=== PATIENT | female | born 1960 | race Caucasian/White ===

== ENCOUNTER 2023-06-21 16:37 | Emergency (ER) | payer MEDICAID ==
[~2023-06-21] VITALS: Ht 167.6 cm; Wt 113.4 kg
[2023-06-21 16:52] VITALS: BP_SYST 135; PULSE 70; RESP 18; TEMP 98.3; O2SAT 96
[2023-06-21] MEDS ORDERED: NACL 0.9% 1,000 ML IV ONE (20:00)
[2023-06-21 20:09] LABS: CLARITY/URINE CLEAR (CLEAR); COLOR,URINE YELLOW (YELLOW)
[2023-06-21 20:10] LABS: BILIRUBIN,URINE NEGATIVE (NEGATIVE); BLOOD, URINE NEGATIVE (NEGATIVE); GLUCOSE,URINE NEGATIVE (NEGATIVE); KETONES,URINE NEGATIVE (NEGATIVE); LEUKOCYTE ESTERASE ,URINE NEGATIVE (NEGATIVE); NITRITE, URINE NEGATIVE (NEGATIVE); PROTEIN URINE NEGATIVE (NEGATIVE); UROBILINOGEN,URINE 0.2 (0.2-1.0)
[2023-06-21 20:13] LABS: BASOPHILS % (AUTO) 0.8 % (0.0-2.0); EOSINOPHILS # (AUTO) 0.2 K/uL (0.0-0.4); EOSINOPHILS % (AUTO) 2.5 % (0.0-4.0); HEMATOCRIT 40.6 % (36-48); HEMOGLOBIN 13.6 g/dL (12.0-16.0); LYMPHOCYTES # (AUTO) 1.9 K/uL (1.0-5.5); LYMPHOCYTES % (AUTO) 28.6 % (20.5-51.5); MEAN CORPUSCULAR HEMOGLOBIN 30 pg (27-31); MEAN CORPUSCULAR HGB CONC 34 % (32-36); MEAN CORPUSCULAR VOLUME 91 fL (79.0-98.0); MONOCYTES # (AUTO) 0.4 K/uL (0.0-1.0); MONOCYTES % (AUTO) 5.8 % (1.7-9.3); NEUTROPHILS # (AUTO) 4.1 K/uL (1.8-7.7); NEUTROPHILS % (AUTO) 62.3 % (40.0-70.0); PLATELET COUNT (AUTO) 177 K/uL (130-430); RED BLOOD CELL COUNT(AUTO) 4.48 MIL/uL (4.2-6.2); RED CELL DISTRIBUTION WIDTH 14.1 % (9.0-15.0); WHITE BLOOD COUNT (AUTO) 6.6 K/uL (4.8-10.8)
[2023-06-21 20:31] LABS: ANION GAP 11 (5-15); CALCIUM 9.2 mg/dL (8.4-11.0); CARBON DIOXIDE 27 mmol/L (23-29); CHLORIDE 102 mmol/L (98-107); CREATININE 0.96 mg/dL (0.55-1.30); GFR AFRICAN AMERICAN 75 mL/min (>90); GLUCOSE 101 mg/dL (74-106); POTASSIUM 3.6 mmol/L (3.5-5.1); SODIUM SERUM 140 mmol/L (136-145); UREA NITROGEN, BLOOD 14 mg/dL (8-21)
[2023-06-21 20:32] LABS: GFR NON AFRICAN-AMERICAN 62 mL/min (>90)
[2023-06-21 20:36] LABS: ALBUMIN 3.9 g/dL (3.4-4.8); ASPARTATE AMINOTRANSFERASE 17 U/L (10-37); TOTAL BILIRUBIN 0.7 mg/dL (0.0-1.0)
[2023-06-21 20:39] LABS: ALANINE AMINOTRANSFERASE < 5 U/L (12-78)
[2023-06-21 21:29] LABS: BARBITURATE, URINE NEGATIVE (NEG <=200); BENZODIAZEPINE, URINE NEGATIVE (NEG <=150); CANNABINOID, URINE POSITIVE (NEG <=50); COCAINE, URINE NEGATIVE (NEG <=150); METHAMPHETAMINES SCREEN,URINE NEGATIVE (NEG <=500); OPIATE, URINE NEGATIVE (NEG <=100); PHENCYCLIDINE SCREEN,URINE NEGATIVE (NEG <=25); UR TRICYCLIC ANTIDEPRESSANTS NEGATIVE (NEG <=300); URINE AMPHETAMINE NEGATIVE (NEG <=500); URINE METHADONE NEGATIVE (NEG <=200); URINE OXYCODONE SCREEN NEGATIVE (NEG <=100); URINE PROPOXYPHENE SCREEN NEGATIVE (NEG <=300)
[2023-06-21] MEDS ORDERED: ONDA-8 TL (21:41)
[2023-06-21] MEDS ORDERED: HALOPERIDOL LACTATE 5 MG/ML VIAL IVP ONE (21:45)
[2023-06-21] MEDS ORDERED: DIPHENHYDRAMINE INJ 50 MG/ML VIAL IVP ONE (21:45)
[2023-06-21 22:07] VITALS: BP_SYST 136; PULSE 74; RESP 18; TEMP 97.3; O2SAT 97
== END 2023-06-21 22:07 | disposition home or self-care (01) ==
LOC: SED 16:37
DX: D49.512 Neoplasm of unspecified behavior of left kidney (principal); R11.15 Cyclical vomiting syndrome unrelated to migraine; R10.9 Unspecified abdominal pain; I10 Essential (primary) hypertension; E78.5 Hyperlipidemia, unspecified; Z79.899 Other long term (current) drug therapy
CPT/HCPCS: 99285; 74176; 96374; 76700; 96361; 96375; 80307; 80053; 85025; 87040; 36415; 76376; 83605; 81003; J1200; J1630; J7030

== ENCOUNTER 2023-09-08 15:02 | Inpatient (IN) | payer MEDICAID ==
[~2023-09-08] VITALS: Ht 167.6 cm; Wt 113.4 kg
[~2023-09-08 15:02] MED LIST: ONDA-8 TL
[2023-09-08 15:05] VITALS: BP_SYST 119; PULSE 88; RESP 18; TEMP 97.6; O2SAT 97
[2023-09-08 17:53] LABS: BASOPHILS % (AUTO) 0.4 % (0.0-2.0); EOSINOPHILS % (AUTO) 0.1 % (0.0-4.0); HEMATOCRIT 33.1 % (36-48); HEMOGLOBIN 11.1 g/dL (12.0-16.0); LYMPHOCYTES # (AUTO) 0.9 K/uL (1.0-5.5); LYMPHOCYTES % (AUTO) 10.3 % (20.5-51.5); MEAN CORPUSCULAR HEMOGLOBIN 30 pg (27-31); MEAN CORPUSCULAR HGB CONC 34 % (32-36); MEAN CORPUSCULAR VOLUME 89 fL (79.0-98.0); MONOCYTES # (AUTO) 0.9 K/uL (0.0-1.0); MONOCYTES % (AUTO) 10.1 % (1.7-9.3); NEUTROPHILS % (AUTO) 79.1 % (40.0-70.0); PLATELET COUNT (AUTO) 151 K/uL (130-430); RED BLOOD CELL COUNT(AUTO) 3.71 MIL/uL (4.2-6.2); RED CELL DISTRIBUTION WIDTH 12.8 % (9.0-15.0); WHITE BLOOD COUNT (AUTO) 8.8 K/uL (4.8-10.8)
[2023-09-08 18:22] LABS: CALCIUM 9.3 mg/dL (8.4-11.0); CREATININE 1.09 mg/dL (0.55-1.30); POTASSIUM 3.3 mmol/L (3.5-5.1); TOTAL PROTEIN, SERUM 6.4 g/dL (6.4-8.3)
[2023-09-08] MEDS ORDERED: fentaNYL CITRATE/PF 100 MCG/2 ML AMP IVP ONE (19:15)
[2023-09-08] MEDS ORDERED: MORPHINE 4 MG INJ. 4 MG/ML VIAL IM ONE (21:00)
[2023-09-08 21:02] LABS: BILIRUBIN,URINE 1+ (NEGATIVE); BLOOD, URINE 2+ (NEGATIVE); CLARITY/URINE CLEAR (CLEAR); COLOR,URINE YELLOW (YELLOW); GLUCOSE,URINE NEGATIVE (NEGATIVE); KETONES,URINE 1+ (NEGATIVE); LEUKOCYTE ESTERASE ,URINE NEGATIVE (NEGATIVE); NITRITE, URINE NEGATIVE (NEGATIVE); PROTEIN URINE 2+ (NEGATIVE); UROBILINOGEN,URINE 0.2 (0.2-1.0)
[2023-09-08 21:18] LABS: BACTERIA,URINE None Seen /HPF (None Seen)
[2023-09-08] MEDS ORDERED: ONDANSETRON HCL 4 MG/2 ML VIAL IVP PRN (22:00)
[2023-09-08] MEDS ORDERED: ACET-73 PO (23:12)
[2023-09-08] MEDS ORDERED: AMLO5TAB4 PO (23:14)
[2023-09-08] MEDS ORDERED: BUSP5TAB3 PO (23:16)
[2023-09-08] MEDS ORDERED: DOCU-144 PO (23:17)
[2023-09-08] MEDS ORDERED: PRO10 PO (23:18)
[2023-09-08] MEDS ORDERED: HYDR-3698 PO (23:20)
[2023-09-08] MEDS ORDERED: METO25TA6 PO (23:21)
[2023-09-08] MEDS ORDERED: ONDA-8 TL (23:22)
[2023-09-08] MEDS ORDERED: PRO40 PO (23:23)
[2023-09-08] MEDS ORDERED: TRAM50TA2 PO (23:24)
[2023-09-08] MEDS ORDERED: TRAZ-250 PO (23:25)
[2023-09-09] VITALS (9 sets, daily range): BP systolic 128–142; PULSE 75–95; RESP 18–20; TEMP 98.2–99; O2SAT 94–99
[2023-09-09] MEDS: HYDROmorphone 1 MG/ML INJ. CARTRIDGE IVP PRN ×3 (06:20→23:05)
[2023-09-09] MEDS ORDERED: LR 500 ML IV ONE (12:00)
[2023-09-09] MEDS ORDERED: ACETAMINOPHEN 325 MG TABLET PO PRN (12:15)
[2023-09-09] MEDS ORDERED: MINERAL OIL 30 ML UDC PO ONE (12:15)
[2023-09-09] MEDS ORDERED: POTASSIUM CHLORIDE 20 MEQ TABLET.ER PO ONE (12:15)
[2023-09-09] MEDS ORDERED: LACTULOSE 20 GM/30 ML UDC PO ONE (12:15)
[2023-09-09] MEDS ORDERED: SODIUM PHOSPHATE,MONO-DIBASIC 133 ML ENEMA RC ONE (12:15)
[2023-09-09] MEDS ORDERED: traMADol HCL HCL 50 MG TABLET (ULTRAM) PO PRN (12:30)
[2023-09-09] MEDS ORDERED: amLODIPine BESYLATE 5 MG TABLET PO ONE (13:00)
[2023-09-09] MEDS ORDERED: DOCUSATE SODIUM 100 MG CAPSULE PO ONE (13:00)
[2023-09-09] MEDS ORDERED: FLUoxetine HCL 10 MG CAPSULE (PROzac) PO ONE (13:00)
[2023-09-09] MEDS ORDERED: PANTOPRAZOLE SODIUM 40 MG TAB PO ONE (13:00)
[2023-09-09] MEDS ORDERED: busPIRone HCL 5 MG TABLET PO ONE (13:00)
[2023-09-09] MEDS ORDERED: METOPROLOL TARTRATE 25 MG TABLET PO ONE (13:00)
[2023-09-09] MEDS: ONDANSETRON HCL 4 MG/2 ML VIAL IVP PRN (13:19)
[2023-09-09] MEDS: PANTOPRAZOLE SODIUM 40 MG TAB PO SCH (20:54)
[2023-09-09] MEDS: traZODone HCL 50 MG TABLET (DESYREL) PO SCH (20:54)
[2023-09-09] MEDS: METOPROLOL TARTRATE 25 MG TABLET PO SCH (20:55)
[2023-09-09] MEDS: DOCUSATE SODIUM 100 MG CAPSULE PO SCH (20:55)
[2023-09-09] MEDS: busPIRone HCL 5 MG TABLET PO SCH (20:55)
[2023-09-10 00:14] VITALS: BP_SYST 136; PULSE 82; RESP 18; TEMP 98.4; O2SAT 97
[2023-09-10 05:47] LABS: BASOPHILS % (AUTO) 0.7 % (0.0-2.0); EOSINOPHILS # (AUTO) 0.1 K/uL (0.0-0.4); EOSINOPHILS % (AUTO) 2.1 % (0.0-4.0); HEMATOCRIT 33.1 % (36-48); HEMOGLOBIN 11.1 g/dL (12.0-16.0); LYMPHOCYTES # (AUTO) 1.1 K/uL (1.0-5.5); LYMPHOCYTES % (AUTO) 18.2 % (20.5-51.5); MEAN CORPUSCULAR HEMOGLOBIN 30 pg (27-31); MEAN CORPUSCULAR HGB CONC 33 % (32-36); MEAN CORPUSCULAR VOLUME 90 fL (79.0-98.0); MONOCYTES # (AUTO) 0.5 K/uL (0.0-1.0); MONOCYTES % (AUTO) 9.2 % (1.7-9.3); NEUTROPHILS % (AUTO) 69.8 % (40.0-70.0); PLATELET COUNT (AUTO) 198 K/uL (130-430); RED CELL DISTRIBUTION WIDTH 12.9 % (9.0-15.0); WHITE BLOOD COUNT (AUTO) 5.8 K/uL (4.8-10.8)
[2023-09-10] MEDS: HYDROmorphone 1 MG/ML INJ. CARTRIDGE IVP PRN ×3 (06:21→21:09)
[2023-09-10 06:49] LABS: ALBUMIN 2.5 g/dL (3.4-4.8); CREATININE 0.96 mg/dL (0.55-1.30); PHOSPHORUS 2.7 mg/dL (2.7-4.5); POTASSIUM 3.7 mmol/L (3.5-5.1); TOTAL BILIRUBIN 0.8 mg/dL (0.0-1.0); TOTAL PROTEIN, SERUM 6.2 g/dL (6.4-8.3)
[2023-09-10 07:55] VITALS: BP_SYST 142; PULSE 71; RESP 18; TEMP 97.2; O2SAT 97
[2023-09-10 08:00] VITALS: O2SAT 97
[2023-09-10] MEDS: DOCUSATE SODIUM 100 MG CAPSULE PO SCH ×2 (09:26→21:09)
[2023-09-10] MEDS: PANTOPRAZOLE SODIUM 40 MG TAB PO SCH ×2 (09:27→21:09)
[2023-09-10] MEDS: busPIRone HCL 5 MG TABLET PO SCH ×2 (09:27→21:09)
[2023-09-10] MEDS: METOPROLOL TARTRATE 25 MG TABLET PO SCH ×2 (09:27→21:10)
[2023-09-10] MEDS: FLUoxetine HCL 10 MG CAPSULE (PROzac) PO SCH (09:28)
[2023-09-10] MEDS: amLODIPine BESYLATE 5 MG TABLET PO SCH (09:28)
[2023-09-10] MEDS: LACTULOSE 20 GM/30 ML UDC PO SCH (09:29)
[2023-09-10 12:00] VITALS: BP_SYST 131; PULSE 65; RESP 18; TEMP 97.4; O2SAT 95
[2023-09-10] MEDS: MINERAL OIL 30 ML UDC PO SCH (12:09)
[2023-09-10 16:00] VITALS: BP_SYST 118; PULSE 67; RESP 18; TEMP 97.5; O2SAT 93
[2023-09-10 20:00] VITALS: BP_SYST 133; PULSE 85; RESP 20; TEMP 98.4
[2023-09-10] MEDS: traZODone HCL 50 MG TABLET (DESYREL) PO SCH (21:09)
[2023-09-11 00:10] VITALS: BP_SYST 115; PULSE 60; RESP 16; TEMP 98; O2SAT 96
[2023-09-11 08:00] VITALS: BP_SYST 148; PULSE 74; RESP 18; TEMP 97.3; O2SAT 96
[2023-09-11] MEDS: MINERAL OIL 30 ML UDC PO SCH (09:00)
[2023-09-11] MEDS: LACTULOSE 20 GM/30 ML UDC PO SCH (09:00)
[2023-09-11] MEDS: METOPROLOL TARTRATE 25 MG TABLET PO SCH ×2 (10:40→20:42)
[2023-09-11] MEDS: busPIRone HCL 5 MG TABLET PO SCH ×2 (10:41→20:42)
[2023-09-11] MEDS: amLODIPine BESYLATE 5 MG TABLET PO SCH (10:41)
[2023-09-11] MEDS: DOCUSATE SODIUM 100 MG CAPSULE PO SCH ×2 (10:42→20:41)
[2023-09-11] MEDS: FLUoxetine HCL 10 MG CAPSULE (PROzac) PO SCH (10:42)
[2023-09-11] MEDS: PANTOPRAZOLE SODIUM 40 MG TAB PO SCH ×2 (10:42→20:41)
[2023-09-11] MEDS: ONDANSETRON HCL 4 MG/2 ML VIAL IVP PRN (11:35)
[2023-09-11] MEDS: HYDROmorphone 1 MG/ML INJ. CARTRIDGE IVP PRN (11:36)
[2023-09-11 12:00] VITALS: BP_SYST 148; PULSE 83; RESP 20; TEMP 96.7; O2SAT 97
[2023-09-11] MEDS ORDERED: METOCLOPRAMIDE HCL 10 MG/2 ML VIAL IVP PRN (14:15)
[2023-09-11 16:00] VITALS: BP_SYST 145; PULSE 80; RESP 19; TEMP 97.8; O2SAT 97
[2023-09-11 20:00] VITALS: BP_SYST 141; PULSE 74; RESP 18; TEMP 98.6; O2SAT 96
[2023-09-11] MEDS: traZODone HCL 50 MG TABLET (DESYREL) PO SCH (20:46)
[2023-09-12 08:00] VITALS: BP_SYST 168; PULSE 82; RESP 20; TEMP 97.6; O2SAT 97; O2SAT 98
[2023-09-12] MEDS: DOCUSATE SODIUM 100 MG CAPSULE PO SCH ×2 (08:53→21:42)
[2023-09-12] MEDS: METOPROLOL TARTRATE 25 MG TABLET PO SCH ×2 (08:54→21:43)
[2023-09-12] MEDS: PANTOPRAZOLE SODIUM 40 MG TAB PO SCH ×2 (08:54→21:42)
[2023-09-12] MEDS: amLODIPine BESYLATE 5 MG TABLET PO SCH (08:55)
[2023-09-12] MEDS: ONDANSETRON HCL 4 MG/2 ML VIAL IVP PRN ×3 (08:58→20:47)
[2023-09-12] MEDS: MINERAL OIL 30 ML UDC PO SCH (09:00)
[2023-09-12] MEDS ORDERED: FLUoxetine HCL 20 MG CAPSULE (PROzac) PO SCH (09:00)
[2023-09-12] MEDS: LACTULOSE 20 GM/30 ML UDC PO SCH (09:00)
[2023-09-12] MEDS: HYDROmorphone 1 MG/ML INJ. CARTRIDGE IVP PRN ×2 (09:02→17:34)
[2023-09-12] MEDS: clonazePAM 0.5 MG TABLET PO PRN (09:18)
[2023-09-12] MEDS: busPIRone HCL 5 MG TABLET PO SCH ×2 (09:19→21:42)
[2023-09-12] MEDS ORDERED: FLUoxetine HCL 10 MG CAPSULE (PROzac) PO ONE (11:45)
[2023-09-12 12:00] VITALS: BP_SYST 134; PULSE 75; RESP 18; TEMP 98.4; O2SAT 96
[2023-09-12] MEDS: SUCRALFATE 1 GM/10 ML UDC GT SCH ×3 (13:31→21:42)
[2023-09-12 17:30] VITALS: BP_SYST 142; PULSE 70; RESP 17; TEMP 98.2; O2SAT 94
[2023-09-12 20:00] VITALS: BP_SYST 146; PULSE 67; RESP 18; TEMP 98.4; O2SAT 97
[2023-09-12] MEDS: traZODone HCL 50 MG TABLET (DESYREL) PO SCH (21:43)
[2023-09-13] VITALS: BP_SYST 139; PULSE 71; RESP 17; TEMP 98; O2SAT 96
[2023-09-13 08:00] VITALS: BP_SYST 142; PULSE 85; RESP 16; TEMP 98.1; O2SAT 97
[2023-09-13] MEDS: DOCUSATE SODIUM 100 MG CAPSULE PO SCH ×2 (08:25→21:05)
[2023-09-13] MEDS: SUCRALFATE 1 GM/10 ML UDC GT SCH ×2 (08:25→10:54)
[2023-09-13] MEDS: busPIRone HCL 5 MG TABLET PO SCH ×2 (08:26→21:05)
[2023-09-13] MEDS: PANTOPRAZOLE SODIUM 40 MG TAB PO SCH ×2 (08:26→21:06)
[2023-09-13] MEDS: METOPROLOL TARTRATE 25 MG TABLET PO SCH ×2 (08:26→21:06)
[2023-09-13] MEDS: FLUoxetine HCL 10 MG CAPSULE (PROzac) PO SCH (08:27)
[2023-09-13] MEDS: amLODIPine BESYLATE 5 MG TABLET PO SCH (08:28)
[2023-09-13] MEDS: MINERAL OIL 30 ML UDC PO SCH (08:31)
[2023-09-13] MEDS: LACTULOSE 20 GM/30 ML UDC PO SCH (08:31)
[2023-09-13] MEDS: ONDANSETRON HCL 4 MG/2 ML VIAL IVP PRN (08:35)
[2023-09-13] MEDS: SUCRALFATE 1 GM/10 ML UDC PO SCH ×3 (11:30→21:06)
[2023-09-13 11:50] VITALS: BP_SYST 137; PULSE 71; RESP 18; TEMP 98.4; O2SAT 96
[2023-09-13] MEDS ORDERED: amLODIPine BESYLATE 5 MG TABLET PO ONE (13:15)
[2023-09-13 16:28] VITALS: BP_SYST 153; PULSE 76; RESP 16; TEMP 97.1; O2SAT 95
[2023-09-13 20:00] VITALS: BP_SYST 160; PULSE 70; RESP 18; TEMP 97.2; O2SAT 98
[2023-09-13] MEDS: traZODone HCL 50 MG TABLET (DESYREL) PO SCH (21:05)
[2023-09-14 00:16] VITALS: BP_SYST 143; PULSE 67; RESP 16; TEMP 98.2; O2SAT 99
[2023-09-14] MEDS: SUCRALFATE 1 GM/10 ML UDC PO SCH ×3 (07:00→16:45)
[2023-09-14 08:00] VITALS: BP_SYST 136; PULSE 77; RESP 18; TEMP 98.8; O2SAT 96; O2SAT 97
[2023-09-14] MEDS: MINERAL OIL 30 ML UDC PO SCH (09:00)
[2023-09-14] MEDS ORDERED: amLODIPine BESYLATE 10 MG TABLET PO SCH (09:00)
[2023-09-14] MEDS: LACTULOSE 20 GM/30 ML UDC PO SCH (09:00)
[2023-09-14] MEDS ORDERED: amLODIPine BESYLATE 5 MG TABLET PO SCH (09:00)
[2023-09-14] MEDS: DOCUSATE SODIUM 100 MG CAPSULE PO SCH (09:07)
[2023-09-14] MEDS: busPIRone HCL 5 MG TABLET PO SCH (09:07)
[2023-09-14] MEDS: FLUoxetine HCL 10 MG CAPSULE (PROzac) PO SCH (09:09)
[2023-09-14] MEDS: PANTOPRAZOLE SODIUM 40 MG TAB PO SCH (09:10)
[2023-09-14] MEDS: METOPROLOL TARTRATE 25 MG TABLET PO SCH (09:11)
[2023-09-14 12:00] VITALS: BP_SYST 139; PULSE 65; RESP 18; TEMP 98.1; O2SAT 97
[2023-09-14] MEDS ORDERED: KLO.5 PO (14:14)
[2023-09-14 15:55] VITALS: BP_SYST 169; PULSE 66; RESP 19; TEMP 98.7; O2SAT 99
[2023-09-14 16:00] VITALS: BP_SYST 169; PULSE 66; RESP 18; TEMP 98; O2SAT 97
[2023-09-14] MEDS: clonazePAM 0.5 MG TABLET PO PRN (16:17)
[2023-09-14] MEDS ORDERED: cloNIDine HCL 0.1 MG TABLET PO ONE (17:15)
== END 2023-09-14 18:45 | disposition home health service (06) | DRG 254 ==
LOC: SED 15:02 → SMU 21:55
PROVIDERS: ADMIT Internal Medicine; ATTEND Internal Medicine
DX: K59.00 Constipation, unspecified (principal); R45.851 Suicidal ideations; E44.0 Moderate protein-calorie malnutrition; C64.2 Malignant neoplasm of left kidney, except renal pelvis; F33.2 Major depressive disorder, recurrent severe without psychotic features; E87.1 Hypo-osmolality and hyponatremia; E66.01 Morbid (severe) obesity due to excess calories; D64.9 Anemia, unspecified; G89.3 Neoplasm related pain (acute) (chronic); G89.18 Other acute postprocedural pain; K58.9 Irritable bowel syndrome, unspecified; E87.6 Hypokalemia; F41.9 Anxiety disorder, unspecified; I10 Essential (primary) hypertension; F43.23 Adjustment disorder with mixed anxiety and depressed mood; Z90.5 Acquired absence of kidney; Z79.899 Other long term (current) drug therapy
CPT/HCPCS: 36415; 71045; 76376; 80053; 81000; 81001; 81015; 82550; 83605; 83735; 84100; 85025; 87040; 94010; 96372; 96374; 97110-GP; 97116-GP; 97530-GP; 99285; J1170; J2270; J2405; J2765; J3010